=== PATIENT | male | born 1945 | race Caucasian/White ===

== ENCOUNTER 2017-07-13 10:26 | Emergency (ER) | payer MEDICARE ==
[2017-07-13] MEDS ORDERED: cefTRIAXone\\ROCEPHIN 2 GM VIAL ONE (10:55)
[2017-07-13] MEDS ORDERED: Ondansetron HCl/PF 4 MG/2 ML Vial ONE (10:55)
[2017-07-13] MEDS ORDERED: Acetaminophen 500 MG TAB ONE ×2 (10:55→11:06)
[2017-07-13 11:20] LABS: ALT (SGPT) 20 U/L (8-55); AST (SGOT) 17 U/L (5-34); Albumin 3.9 g/dL (3.4-4.8); Alkaline Phosphatase 59 U/L (40-150); Anion Gap 18 mmol/L (10-20); BUN (Urea Nitrogen) 25 mg/dL (8.4-25.7); Bilirubin, Total 0.7 mg/dL (0.2-1.2); Calc. Creatinine Clearance 0 mL/min (70-130); Calcium 9.7 mg/dL (7.8-10.44); Carbon Dioxide 22 mmol/L (23-31); Chloride 96 mmol/L (98-107); Estimated GFR-MDRD 44; Globulin 3.2 g/dL (2.4-3.5); Glucose 177 mg/dL (83-110); Potassium 3.5 mmol/L (3.5-5.1); Protein, Total 7.1 g/dL (5.8-8.1); Sodium 132 mmol/L (136-145)
[2017-07-13 11:21] LABS: #Basophils 0.1 thou/uL (0.0-0.2); #Monocytes 1.4 thou/uL (0.11-0.59); %Basophils 0.5 % (0.0-1.0); %Lymphocytes 7.6 % (21.0-51.0); %Neutrophils 80.8 % (42.0-75.0); Hemoglobin 15.9 g/dL (14.0-18.0); Mean Corpuscular HGB CONC 37.2 g/dL (32.0-36.0); Mean Corpuscular Hemoglobin 31.4 pg (27.0-31.0); Mean Corpuscular Volume 84.3 fl (80.0-94.0); Mean Platelet Volume 6.5 fL (7.4-10.4); Platelet Count 255 thou/uL (130-400); RBC Distribution Width 13.1 % (11.5-14.5); Red Blood Cell (RBC) Count 5.06 mill/uL (4.70-6.10); White Blood Cell (WBC) Count 12.4 thou/uL (4.8-10.8)
[2017-07-13 11:22] LABS: MDiff Complete? YES
--- NOTE | 2017-07-13 15:50 | RAD ---
PORTABLE CHEST: Date: 07-13-17 Time: 1044 a.m. Comparison: None. FINDINGS: The heart is mildly enlarged. There are no clear congestive changes present at the moment. No effusio ns are seen. The area of slightly increased density in the left hilum is felt to be due to the left p ulmonary artery. It would be helpful to see the area on PA and lateral views to be certain. IMPRESSION: 1. Mild cardiomegaly. 2. Slight left hilar prominence which is probably all due to pulmonary artery. See above. POS: HOME
== END 2017-07-13 12:26 | disposition home or self-care (01) ==
LOC: BURERS 10:26
DX: J06.9 Acute upper respiratory infection, unspecified (principal); E11.9 Type 2 diabetes mellitus without complications; E78.5 Hyperlipidemia, unspecified; I10 Essential (primary) hypertension; F17.220 Nicotine dependence, chewing tobacco, uncomplicated; I25.2 Old myocardial infarction; Z79.899 Other long term (current) drug therapy; Z79.84 Long term (current) use of oral hypoglycemic drugs
CPT/HCPCS: 36415; 71045; 80053; 83605; 85025; 87040; 87149; 87804; 93005; 94640; 94760; 96361; 96374; 96375; J0696; J2405; J7620